=== PATIENT | male | born 1990 | race Caucasian/White ===

== ENCOUNTER 2016-07-29 22:37 | Emergency (ER) | payer SELFPAY ==
[2016-07-29 22:50] VITALS: BP 144/77
[2016-07-29] MEDS ORDERED: Ciprofloxacin 0.3% Ophth Soln 2.5 ML Bottle EYERT ONE (23:26)
[2016-07-29] MEDS ORDERED: Ketorolac 0.5% Ophth Soln 5 ML Bottle EYERT ONE (23:27)
--- NOTE | 2016-07-29 23:36 | EDM.PDOC ---
ED HPI GENERAL MEDICAL PROBLEM - General Time Seen by Provider: 07/29/16 23:30 Right Eye Pain Score (Numeric/FACES): 2 - Related Data Allergies Allergy/AdvReac Type Severity Reaction Status Date / Time No Known Allergies Allergy Verified 07/29/16 22:50 Home Meds: Home Meds . [No Known Home Meds] 07/29/16 [History] Past Medical History HEENT History: Reports: Impaired vision Musculoskeletal History: Reports: Fracture Other Musculoskeletal History: right wrist, Social & Family History - Family History Family Medical History: Noncontributory - Tobacco Use Smoking Status *Q: Current Every Day Smoker Years of Tobacco use: 10 Packs/Tins Daily: 0.2 - Caffeine Use Caffeine Use: Reports: Energy drinks - Recreational Drug Use Recreational Drug Use: No - Living Situation & Occupation Living situation: Reports: with significant other Occupation: employed ED ROS ENT - Review of Systems Review Of Systems: See Below Constitutional: Reports: no symptoms Respiratory: Reports: No Symptoms Endocrine: Reports: no symptoms GI/Abdominal: Reports: No symptoms : Reports: no symptoms Musculoskeletal: Reports: no symptoms Skin: Reports: no symptoms Neurological: Reports: No Symptoms Hematologic/Lymphatic: Reports: no symptoms Immunologic: Reports: no symptoms ED EXAM, ENT - Physical Exam Exam: See Below Exam Limited By: No limitations General Appearance: alert, WD/WN, other (Right eye is quite erythematous. Then injected.) Eye Exam: right eye: conjunctival injection (Moderate), foreign body (Noted to be on the cornea at the 3:00 position near the center of the cornea.), bilateral eye: other (No foreign bodies identified under the right upper eyelid. Slit-lamp identified is a linear corneal abrasion proximal be 8-9 mm in length after removal of the foreign body with moistened Q-tip.) Head: atraumatic, normocephalic Neck: normal inspection, supple, non-tender, full range of motion. No: lymphadenopathy (L), lymphadenopathy (R) Course - Vital Signs Last Recorded V/S: Last Vital Signs Temp 37.1 C 07/29/16 22:47 Pulse 69 07/29/16 22:47 Resp 16 07/29/16 22:47 BP 144/77 H 07/29/16 22:47 Pulse Ox 99 07/29/16 22:47 - Orders/Labs/Meds Meds: Medications Discontinued Medications Generic Name Dose Route Start Last Admin Trade Name Alcira PRRanjan Reason Stop Dose Admin Ciprofloxacin 2.5 ml 07/30/16 23:26 Ciloxan 0.3% Ophth Soln EYERT 07/30/16 23:27 ONETIME ONE Ciprofloxacin 2.5 ml 07/29/16 23:26 07/29/16 23:35 Ciloxan 0.3% Ophth Soln EYERT 07/29/16 23:27 2 drop ONETIME ONE Administration Ketorolac Tromethamine 2.5 ml 07/30/16 23:27 Acular 0.5% Ophth Soln EYERT 07/30/16 23:28 ONETIME ONE Ketorolac Tromethamine 2.5 ml 07/29/16 23:27 07/29/16 23:35 Acular 0.5% Ophth Soln EYERT 07/29/16 23:28 2 drop ONETIME ONE Administration - Radiology Interpretation Free Text/Narrative:: 25-year-old male presents the ED with a work related injury. Presents with a foreign body in his right eye that we could visualize. He believes it to be a piece of wood or sawdust as there was working was very windy and sawdust blew into his right eye under his goggles today at about 10 am today. Unable to rinse the foreign body out of his eye. On inspection no foreign body is a piece of sawdust and was noted to be embedded in the right mid cornea at the 3:00 position. No foreign bodies are identified on diversion of the upper eyelid. No foreign bodies identified in the lower eyelid. Under proparacaine drops but was able to remove a foreign body with the aid of a moistened Q-tip. Slit-lamp slit- lamp examination performed after this reveals a linear abrasion approximately 8- 9 mm in length below where the foreign body was identified. Treated therefore with Cipro ophthalmic drops 2 drops to the eye 3 times daily for 2 days to ensure no infection occurs. Ketorolac ophthalmic drops 2 drops to the eye were placed in the ED and then he can use them every 6 hours needed for pain relief. Given a note to excuse him from work place for the next 24 hours is intake about 16 hours for the ID heal completely. Departure - Departure Time of Disposition: 23:50 Disposition: Home, Self-Care 01 Clinical Impression: Foreign body of right cornea Qualifiers: Encounter type: initial encounter Qualified Code(s): T15.01XA - Foreign body in cornea, right eye, initial encounter Corneal abrasion Qualifiers: Encounter type: initial encounter Laterality: right Qualified Code(s): S05.01XA - Injury of conjunctiva and corneal abrasion without foreign body, right eye, initial encounter - Discharge Information Instructions: Corneal Abrasion, [id number] Referrals: PCP,None [Primary Care Provider] - Forms: ED Department Discharge, Return to Work/School Form Additional Instructions: Evaluation in the emergency department tonight in regards to foreign body sensation Rt eye. Work related injury. FB in eye since 1000 hrs this am. FB -- piece of sawdust removed under local anaesthetic. Slit lamp exam reveals a superfical corneal abrasion which will take about 16 hrs to heal. Treatment is Ketoralac eye drops 2 drops to the Rt eye every 6hrs as needed for pain relief. Cipro eye antibiotic drops 2 drops to the Rt eye three times daily for tw days to prevent infection. Off work tomorrrow. May need sunglasses as the eye will be very sensitive to light and sunlight for about 24hrs. ED HPI ENT - General Chief Complaint: Eye Problems Stated Complaint: SLIVER OF WOOD IN RIGHT EYE Time Seen by Provider: 07/29/16 23:30 Source of Information: Reports: Patient History Limitations: Reports: No limitations - History of Present Illness INITIAL COMMENTS - FREE TEXT/NARRATIVE: 25-year-old male presents to the ED with a work-related injury. He reports that about 10:00 this morning the wind blew sawdust into his right eye. He was wearing eye protection goggles at the time. Reports right eye continues to be irritated and reddened and excessively sensitive to light and tearing. He can identify a foreign body on his cornea but he was unable to void sent out. He does not wear contact lenses. Denies any other problems. 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 [No Known Home Meds] 07/29/16 [History] Departure - Departure Time of Disposition: 23:50 Disposition: Home, Self-Care 01 Condition: fair Clinical Impression: Foreign body of right cornea Qualifiers: Encounter type: initial encounter Qualified Code(s): T15.01XA - Foreign body in cornea, right eye, initial encounter Corneal abrasion Qualifiers: Encounter type: initial encounter Laterality: right Qualified Code(s): S05.01XA - Injury of conjunctiva and corneal abrasion without foreign body, right eye, initial encounter Instructions: Corneal Abrasion, [id number] Referrals: PCP,None [Primary Care Provider] - Forms: ED Department Discharge, Return to Work/School Form Additional Instructions: Evaluation in the emergency department tonight in regards to foreign body sensation Rt eye. Work related injury. FB in eye since 1000 hrs this am. FB -- piece of sawdust removed under local anaesthetic. Slit lamp exam reveals a superfical corneal abrasion which will take about 16 hrs to heal. Treatment is Ketoralac eye drops 2 drops to the Rt eye every 6hrs as needed for pain relief. Cipro eye antibiotic drops 2 drops to the Rt eye three times daily for tw days to prevent infection. Off work tomorrrow. May need sunglasses as the eye will be very sensitive to light and sunlight for about 24hrs.
[2016-07-30] MEDS ORDERED: Ciprofloxacin 0.3% Ophth Soln 2.5 ML Bottle EYERT ONE (23:26)
[2016-07-30] MEDS ORDERED: Ketorolac 0.5% Ophth Soln 5 ML Bottle EYERT ONE (23:27)
== END 2016-07-29 23:52 | disposition home or self-care (01) ==
LOC: JD.ED 22:37
DX: T15.01XA Foreign body in cornea, right eye, initial encounter (principal); F17.210 Nicotine dependence, cigarettes, uncomplicated; X58.XXXA Exposure to other specified factors, initial encounter
CPT/HCPCS: 65222; 99283; A9270

== ENCOUNTER 2016-11-04 18:36 | Emergency (ER) | payer SELFPAY ==
[2016-11-04 19:03] VITALS: BP 132/74
[2016-11-04] MEDS ORDERED: Sodium Chloride 0.9% 10 ML Syringe FLUSH PRN (19:24)
[2016-11-04] MEDS ORDERED: Iopamidol 612 MG/ML 100 ML Bottle IVPUSH ONE (19:44)
--- NOTE | 2016-11-04 20:13 | CT ---
CT chest Technique: Multiple axial sections through the chest were obtained. Intravenous contrast was utilized. Comparison: No previous chest imaging. Findings: Mediastinum and hilar regions appear within normal limits. No axillary adenopathy is seen. Small 7 mm cyst is partially visualized within the left kidney. No pericardial thickening is seen. Minimal atelectasis is seen within both posterior lung bases. This is incidental. Lungs otherwise are clear. No pleural effusions or pneumothorax is seen. Bone window settings were reviewed which shows no discrete rib fracture. Vertebral body heights are maintained. No discrete lumbar spine fracture is appreciated. Impression: 1. Slight atelectasis noted within both posterior lung bases which is incidental. 2. Incidental 7 mm cyst seen within the left kidney. 3. No additional abnormality is identified on CT study of the chest. Diagnostic code #2
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
== END 2016-11-04 20:40 | disposition home or self-care (01) ==
LOC: JD.ED 18:36
DX: S20.219A Contusion of unspecified front wall of thorax, initial encounter (principal); S10.93XA Contusion of unspecified part of neck, initial encounter; S80.12XA Contusion of left lower leg, initial encounter; F17.210 Nicotine dependence, cigarettes, uncomplicated; Y04.0XXA Assault by unarmed brawl or fight, initial encounter
CPT/HCPCS: 71260; 99284; Q9967